=== PATIENT | male | born 2000 | race Caucasian/White ===

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

== ENCOUNTER 2019-06-30 13:34 | Emergency (ER) | payer SELFPAY ==
[~2019-06-30] VITALS: Ht 175.3 cm; Wt 60.0 kg
[~2019-06-30 13:34] MED LIST changes: +NORCO1 TA1 PO
[2019-06-30] MEDS ORDERED: KEFLEX500 MG PO (14:21)
[2019-06-30 14:40] VITALS: BP 141/93
== END 2019-06-30 14:39 | disposition home or self-care (01) | DRG 605 ==
LOC: ED 13:34
PROC: 0HCQXZZ Extirpation of Matter from Finger Nail, External Approach (ICD-10-PCS; principal; 2019-06-30)
DX: S60.352A Superficial foreign body of left thumb, initial encounter (principal); W45.8XXA Other foreign body or object entering through skin, initial encounter; Y93.89 Activity, other specified; Y92.007 Garden or yard of unspecified non-institutional (private) residence as the place of occurrence of the external cause